=== PATIENT | male | born 1935 | race Two or more races ===

== ENCOUNTER 2022-04-08 05:15 | Day surgery (SDC) | payer OTHER ==
[~2022-04-08] VITALS: Ht 177.8 cm; Wt 74.4 kg
[~2022-04-08 05:15] MED LIST: GLIMEPIRIDE1 MG; JANUMET 50-5001 EACH PO
== END 2022-04-08 14:50 | disposition home or self-care (01) ==
LOC: CIR.AMB 05:15
PROVIDERS: ATTEND Specialist
DX: K40.90 Unilateral inguinal hernia, without obstruction or gangrene, not specified as recurrent (principal); Z20.822 Contact with and (suspected) exposure to COVID-19; Z88.6 Allergy status to analgesic agent; E11.9 Type 2 diabetes mellitus without complications; Z79.84 Long term (current) use of oral hypoglycemic drugs